=== PATIENT | female | born 1960 | race Caucasian/White ===

== ENCOUNTER 2024-12-22 04:39 | Emergency (ER) | payer MEDICARE, BC, SELFPAY ==
[2024-12-22 05:11] VITALS: BP 119/73; PULSE 87; RESP 18; TEMP 36.4; O2SAT 100; BMI 21.5
--- NOTE | 2024-12-22 07:02 | ED_ITS ---
HPI - Eye Problem General: Chief complaint: Eye Problems Stated complaint: Left Eye Swollen Time Seen by Provider: 12/22/24 05:55 History of Present Illness: 64-year-old female presents emergency ro om with swelling of the left upper eyelid. She reports she has had these multiple times the swelling in the side is increasing extending across the upper eyelid and even a sensation of swelling in the left cheek. She has not had any fevers or chills no trauma to the eye. She reports having several of these over the last few months. She was seen recently in urgent care and given steroids and antihistamines has not had a response. Related Data Home Medications ?Medication ?Instructions ?Recorded ?Confirmed alprazolam 0.5 mg tablet 0.5 mg PO BID 11/30/2412/22 cholecalciferol (vitamin D3) 1,250 1,250 mcg PO Q7D 12/22/24 mcg (50,000 unit) capsule tirzepatide 15 mg/0.5 mL 15 mg SUBCUT Q30D 11/30/24 0 12/22/24 subcutaneous pen injector (Ilan) Previous Rx's ?Medication ?Instructions ?Recorded fexofenadine 60 mg tablet (Claudia 60 mg PO Q12H 30 da ys #60 tabs 12/01/24 Allergy) dopmrwbe-vzsdxnoaz-zjgdqoab 3.5 1 drp ophthalmic (eye) Q6H #5 mL 12/22/24 mg/mL-10,000 unit/mL-0.1% eye drops sulfamethoxazole 800 1 tab PO BID 7 days #14 tabs 12/22/24 mg-trimethoprim 160 mg tablet (Bactrim DS) Allergies Allergy/AdvReac Type Severity Reaction Status Date / Time ceftriaxone Allergy Severe Unresponsiv Verified 12/22/24 05:14 e ciprofloxacin Allergy Severe Unresponsiv Verified 12/22/24 05:14 e levofloxacin (From Levaquin) Allergy Severe Unresponsiv Verified 12/22/24 05:14 e penicillin G Allergy Severe Unresponsiv Verified 12/22/24 05:14 e codeine Allergy Unresponsiv Verified 12/22/24 05:14 e Opioid Allergy Severe ADR-Vomitin Uncoded 12/22/24 05:14 g PFSH ED PFSH: Medical History Multiple environmental allergies Sty, internal Social History Smoking and tobacco/nicotine status: never used tobacco/nicotine Physical Exam Const: COMMON NORMALS: no acute distress GENERAL APPEARANCE: cooperative and comfortable ORIENTATION/CONSCIOUSNESS: Yes awake, Yes oriented to person, Yes oriented to place and Yes oriented to time HENMT: COMMON NORMALS: normocephalic, atraumatic and hearing grossly normal bilaterally HEAD & SCALP: normocephalic and atraumatic Eye: OTHER: Reportedly in the medial aspect of the left upper eyelid with localized swelling mild erythema of the upper eyelid itself the upper limb appears to be coming to a point sclera and conjunctiva are normal there is mild excessive watering of the eye Extremity: COMMON NORMALS: normal to inspection, capillary refill normal, no clubbing, cyanosis or edema, no calf tenderness and no pedal edema Neuro: SENSORIUM/ORIENTATION: Yes oriented to person, Yes oriented to place and Yes oriented to time Skin: COMMON NORMALS: no rashes or lesions noted GENERAL SKIN EXAM: no rashes or lesions noted Course Vital Signs: Vital signs: Vital Signs Temperature 97.6 F 12/22/24 05:11 Pulse Rate 86 12/22/24 07:25 Respiratory Rate 18 12/22/24 05:11 Blood Pressure 141/98 12/22/24 07:25 Pulse Oximetry 99 12/22/24 07:25 Oxygen Delivery Me thod Room Air 12/22/24 05:11 MDM - Eye Problem Medical Decision Making Patient is reporting multiple episodes of these given the frequency will start her on Bactrim addition to localized swelling does extend a little bit beyond the eye itself. Also provide topical antibiotic ointment arrangements for her to be seen in the myology later this morning. She may benefit from incision and drainage of the heartily and No radiology studies performed this visit Discharge Plan Discharge Patient Disposition: Home Clinical Impression: Hordeolum Condition: Stable Prescriptions: New sulfamethoxazole-trimethoprim [Bactrim DS] 800-160 mg tablet 1 tab PO BID 7 Days Qty: 14 0RF neomycin-polymyxin B-dexameth 3.5mg/mL-10,000 unit/mL-0.1 % drops,suspension 1 drp ophthalmic (eye) Q6H Qty: 5 0RF No Action fexofenadine [Claudia Allergy] 60 mg tablet 60 mg PO Q12H 30 Days Qty: 60 1RF Mounjaro 15 mg/0.5 mL pen injector 15 mg SUBCUT Q30D cholecalciferol (vitamin D3) 1,250 mcg (50,000 unit) capsule 1,250 mcg PO Q7D alprazolam 0.5 mg tablet 0.5 mg PO BID Discharge Orders: Discharge ED (Routine); Ordered 12/22/24 Ordered By: Anshu Lindsey Referrals: Perfecto Cee [Physician] - Discharge Diet: Usual diet Discharge Activity: Resume usual activity Patient Instructions: Opioid Safety, Pain Management, Stye (Hordeolum) Activity Restrictions/Additional Instructions: Thank you for choosing [facility] for your healthcare needs today. It is very important that you follow up as instructed or that you return to the Emergency Department should you have concerns or if your condition changes or worsens in any way. You are seen in the emergency room for swelling of any left upper eyelid with swelling extending to the cheek. The typical treatment for these is warm compr esses to the eye if they are recurrent or such as this one and they seem to have swelling that is extending will recommend oral and topical antibiotic with a steroid. Will contact you later this morning to follow-up with an signal integrity engineer here in town who can evaluate for incision and drainage of hordeolum (stye). Print Language: Kyrgyz Coding Level of Care Code ED Roll Form Operator for Debbie Amato
[2024-12-22 07:25] VITALS: BP 141/98; PULSE 86; O2SAT 99
== END 2024-12-22 07:26 | disposition home or self-care (01) ==
PROVIDERS: Emergency Provider Family Medicine
DX: H00.014 Hordeolum externum left upper eyelid (principal)
CPT/HCPCS: 99283

== ENCOUNTER → 2025-04-05 14:52 | Outpatient (BNVA) | payer MEDICARE, BC, SELFPAY | PROVIDERS: PCP Family Medicine; Visit Provider Family Medicine | DX: R30.0 Dysuria (principal) | CPT/HCPCS: 81000 ==

== ENCOUNTER → 2025-05-03 09:58 | Outpatient (BNVA) | payer MEDICARE, BC, SELFPAY | PROVIDERS: PCP Family Medicine; Visit Provider Family Medicine | DX: Z13.6 Encounter for screening for cardiovascular disorders (principal); Z11.59 Encounter for screening for other viral diseases; R73.03 Prediabetes; Z11.4 Encounter for screening for human immunodeficiency virus [HIV] | CPT/HCPCS: 80053; 80061; 83036; 85025; 86803; 87389 ==

== ENCOUNTER → 2025-05-06 10:21 | Outpatient (BNVA) | payer MEDICARE, BC, SELFPAY | PROVIDERS: PCP Family Medicine; Visit Provider Nurse Practitioner Family | DX: M79.18 Myalgia, other site (principal); M54.2 Cervicalgia; G89.29 Other chronic pain | CPT/HCPCS: 20553; 99214; J1010; J3490 ==

== ENCOUNTER 2025-05-07 06:42 | Observation (INO) | payer MEDICARE, BC, SELFPAY ==
--- OUTSIDE RECORDS SUMMARY | 2024-01-04 16:30 | XMS_ITS ---
Author Organization [facility] Address [address] [facility] [facility] [address] [address] Care Team Providers Care Paper Maker Name Role Phone Brian Ford Unavailable [phone] Flaco Mclaughlin MD Unavailable Unavailable Migration, Provider Unavailable Unavailable Allergies Allergen (clinical drug ingredient) Drug/Non Drug Allergy documented on EMR Reaction Allergy Type Onset Date Status codeine Codeine Unknown Drug Allergy Active Penicillin Unknown Drug Allergy Active REASON FOR VISIT [facility] To [facility] Conversion Encounter Medications Medication SIG (Take, Route, Frequency, Duration) Notes Start Date End Date Status Cyanocobalamin 1000 MCG/ML ; Duration: 84 Active Clindamycin HCl 900 MG/50 ML-NACL 0.9% DIRECTED INTRAVENOUSLY EVERY 8 HOURS *Please review and pick correct strength-formulat ion from Sistemican options. If intended option is not shown, discontinue and re-order from Quick Search* 07/05/2022 Active Ozempic (1 MG/DOSE) 4 MG/3 ML ; Duration: 84 *Please review and pick correct strength-formulat ion from impokspan options. If intended option is not shown, discontinue and re-order from Quick Search* Active ALPRAZolam 0.5 MG ; Duration: 30 Active ALBUTEROL (EQV-PROVENTIL HFA) 90 MCG/INH ; Duration: 30 *Please review for potential replacement for e-prescription and drug interaction check* Active Encounters Encounter Location Date Provider Diagnosis [facility] [address] [place] [address] 01/04/2024 Provider Migration Osteomyelitis, jaw acute M27.2 Assessments Encounter Date Diagnosis (ICD Code) Assessment Notes Treatment Notes Treatment Clinical Notes Section Notes 01/04/2024 Osteomyelitis, jaw acute (ICD-10 - M27.2) Plan Of Treatment Medication Medication Name Sig Start Date Stop Date Notes Clindamycin HCl 900 MG/50 ML-NACL 0.9% DIRECTED INTRAVENOUSLY EVERY 8 HOURS 07/05/2022 *Please review and pick correct strength-formulation from Medispan options. If intended option is not shown, discontinue and re-order from Quick Search* Progress Notes * Kimberly TRAN SDOB: (64 yo F)Acc No.[id number]:01/04/2024 Patient: Kimberly CONNOR Provider: Emile vail Migration :1960 A ge:63 Y S ex:Female Date:01/04/2024 Address:[address] [place] [address], [place], [id number] Subjective: * Chief Complaints: * 1 . Multum To [facility] Conversion Encounter. * Medical History: * Medications: T aking Cyanocobalamin 1000 MCG/ML Solution , Taking ALPRAZolam 0.5 MG Tablet , Taking ALBUTEROL (EQV-PROVENTIL HFA) 90 MCG/INH AEROSOL , Notes to Pharmacist: *Please review for potential replacement for e-prescription and drug interaction check*, Taking Ozempic (1 MG/DOSE) 4 MG/3 ML SOLUTION , Notes to Pharmacist: *Please review and pick correct strength-formulation from Medispan options. If intended option is not shown, discontinue and re-order from Quick Search* * Allergies: C odeine, Penicillin. Objective: * Vitals: Assessment: * Assessment: 1. O steomyelitis, jaw acute - M27.2 (Primary) Plan: * Treatment: * * Electronic signature of Prov ider Migration on 05/07/2025 at 07:54 AM EDT Sign off status: Pending * Provider: Emile vail Migration Date: 0 01/04/2024 Generated for Brian hurt/Medardo/eTransmitting on: 0 05/07/2025 07:54 AM EDT
--- OUTSIDE RECORDS SUMMARY | 2024-01-04 16:30 | XMS_ITS ---
Author Organization [facility] [address] [facility] [facility] [address] [address] Care Team Providers Care Credit Review Manager Name Role Phone Brian Ford Unavailable [phone] Flaco Mclaughlin MD Unavailable Unavailable Migration, Provider Unavailable Unavailable Allergies Allergen (clinical drug ingredient) Drug/Non Drug Allergy documented on EMR Reaction Allergy Type Onset Date Status codeine Codeine Unknown Drug Allergy Active Penicillin Unknown Drug Allergy Active REASON FOR VISIT [facility] Conversion Encounter Medications Medication SIG (Take, Route, Frequency, Duration) Notes Start Date End Date Status Cyanocobalamin 1000 MCG/ML ; Duration: 84 Active Clindamycin HCl 900 MG/50 ML-NACL 0.9% DIRECTED INTRAVENOUSLY EVERY 8 HOURS *Please review and pick correct strength-formulat ion from WeOrder LTDan options. If intended option is not shown, discontinue and re-order from Quick Search* 07/05/2022 Active Ozempic (1 MG/DOSE) 4 MG/3 ML ; Duration: 84 *Please review and pick correct strength-formulat ion from CardioMindspan options. If intended option is not shown, discontinue and re-order from Quick Search* Active ALPRAZolam 0.5 MG ; Duration: 30 Active ALBUTEROL (EQV-PROVENTIL HFA) 90 MCG/INH ; Duration: 30 *Please review for potential replacement for e-prescription and drug interaction check* Active Encounters Encounter Location Date Provider Diagnosis [facility] [address] [place] [address] 01/04/2024 Provider Migration Osteomyelitis, jaw acute M27.2 [...] * Kimberly TRAN SDOB: (64 yo F)Acc No.[id number]:01/04/2024 Patient: Kimberly CONNOR Provider: Emile vail Migration :1960 A ge:63 Y S ex:Female Date:01/04/2024 Address:[address] [place] [address], [place], [id number] Subjective: * Chief Complaints: * 1 . [facility] Conversion Encounter. * Medical History: * Medications: [...] Electronic signature of Prov ider Migration on 05/08/2025 at 02:54 PM EDT Sign off status: Pending * Provider: Emile vail Migration Date: 0 01/04/2024 Generated for Brian hurt/Medardo/eTransmitting on: 0 05/08/2025 02:54 PM EDT
[2025-05-07] VITALS (99 sets, daily range): BP systolic 121–156; BP diastolic 65–104; PULSE 66–96; RESP 12–32; TEMP 36.6–37; O2SAT 83–100; BMI 21.1
--- NOTE | 2025-05-07 06:52 | ECG_ITS ---
[facility] Pat Name: Kimberly Zaidi Department: Room: Gender: Female Manager Business Banking: : 1960 Requested By: Anshu Hernandez Order Number: [id number] Karolina MD: Paz Wray M.D. Measurements Intervals [place] Rate: 92 P: 83 OK: 141 QRS: 90 QRSD: 90 T: 86 QT: 360 QTc: 445 Interpretive Statements SINUS RHYTHM POSSIBLE RIGHT ATRIAL ENLARGEMENT [0.25mV P-WAVE] POSSIBLE LEFT ATRIAL ENLARGEMENT [-0.1mV P-WAVE IN V1/V2] LOW QRS VOLTAGE IN PRECORDIAL LEADS [QRS DEFLECTION < 1.0 mV IN CHEST LEADS] MODERATE ST DEPRESSION [0.05+ mV ST DEPRESSION] No previous ECG available for comparison Electronically Signed On 05-07-2025 15:09:19 CDT by Paz Wray M.D. [email or web address]
--- NOTE | 2025-05-07 06:53 | XR_ITS ---
WS: [id number] Exam: XR chest 1V portable [id number] Date/Time of Exam: 05/07/2025 7:23 AM Reason For Exam: dyspnea/cough There is 25% pneumothorax of the upper lobe of the RIGHT lung. No midline shift or tension noted. The LEFT lung is clear. Normal cardiomediastinal silhouette. Bony structures are intact. No pleural effusion. XR/XR chest 1V portable [id number] IMPRESSION: 1. 25% pneumothorax of the upper lobe of the RIGHT lung. These results were discussed by phone with Dr. Cervantes[facility] at 8:14 a.m. 05/07/2025.
--- OUTSIDE RECORDS SUMMARY | 2025-05-07 06:54 | XMS_ITS | Patient Health Record ---
Author Organization [facility] Address [address] [address] Care Team Providers Care Business Improvement Manager Name Role Phone Brian Ford Unavailable [phone] Arnoldo JACKSON, Flaco Unavailable Unavailable Allergies Allergen (clinical drug ingredient) Drug/Non Drug Allergy documented on EMR Reaction Allergy Type Onset Date Status codeine Codeine Unknown Drug Allergy Active Penicillin Unknown Drug Allergy Active Reason For Referral No Information Medications Medication SIG (Take, Route, Frequency, Duration) Notes Start Date End Date Status Cyanocobalamin 1000 MCG/ML ; Duration: 84 Active Clindamycin HCl 900 MG/50 ML-NACL 0.9% DIRECTED INTRAVENOUSLY EVERY 8 HOURS *Please review and pick correct strength-formulat ion from Boomi options. If intended option is not shown, discontinue and re-order from Quick Search* 07/05/2022 Active Ozempic (1 MG/DOSE) 4 MG/3 ML ; Duration: 84 *Please review and pick correct strength-formulat ion from Fluklean options. If intended option is not shown, discontinue and re-order from Quick Search* Active ALPRAZolam 0.5 MG ; Duration: 30 Active ALBUTEROL (EQV-PROVENTIL HFA) 90 MCG/INH ; Duration: 30 *Please review for potential replacement for e-prescription and drug interaction check* Active Social History Tobacco Use: Social History Observation Description Date Details (start date - stop date) Unknown if ever smoked NA - NA Alcohol: Question Answer Notes Interpretation Negative Smoking: Question Answer Notes Are you a: unknown if ever smoked Problems Problem Type SNOMED Code ICD Code Onset Dates Problem Status W/U Status Risk Notes Problem Type 2 diabetes mellitus (39949405) Type 2 diabetes mellitus (E11.9) 07/20/2021 Active confirmed Problem SVT (supraventricu lar tachycardia) (I47.1) 06/05/2021 Active confirmed Plan Of Treatment No Information Insurance Providers Payer Name Payer Address Payer Phone Subscriber Number Group Number Insured Name Patient Relationship to Insured Coverage Start Date Coverage End Date MEDICARE [employer] [address] [place] [address] [id number] Kimberly Zaidi Self - patient is the insured [place] [address] [place] [address] [id number] Kimberly Zaidi Self - patient is the insured Medical (General) History Medical History History ICD Code colorectal cancer rectal cancer osteomyelitis herpes SVT DM Surgical History Surgery Date(Month/Year) colectomy ileostomy jaw dental surgery Debridement reconstructive surgery
--- NOTE | 2025-05-07 06:56 | ED_ITS ---
HPI - Chest Pain 2 General: Chief Complaint: Chest Pain Stated Complaint: pain left side rib area, trouble breathing Time Seen by Provider: 05/07/25 06:48 History of Present Illness: 64-year-old female presents emergency ro om complaining of right-sided chest pain. Describes the pain as a squeezing sensation. Patient received trigger point injections in her upper back yesterday at the pain clinic. These were in the region of the rhomboid, scalene and levator scapula. Patient seen there for chronic neck and back pain. She did take some diphenhydramine last night and states that helped. Worse when she takes a deep breath. Associated symptoms: Deny abdominal pain, dyspnea or fever(s) Related Data Home Medications ?Medication ?Instructions ?Recorded ?Confirmed tirzepatide 15 mg/0.5 mL 15 mg SUBCUT Q30D 11/30/24 0 05/07/25 subcutaneous pen injector (Ilan) Brava Skin Barrier Wipe for Ostomy 01/15/25 05/07/25 appliance placement CeraPlus Lock'n Roll 1 piece 01/15/25 05/07/25 Drainable Ostomy Pouch ergocalciferol (vitamin D2) 1,250 1,250 mcg PO .weekly 01/15/25 05/07/25 mcg (50,000 unit) capsule mecobalamin (vitamin B12) 10,000 10,000 mcg IM .monthl y 05/06/25 05/07/25 mcg solution for injection aspirin 325 mg tablet (Malcolm 650 mg PO Q6H PRN Fever O r Pain 05/07/25 05/07/25 Aspirin) diphenhydramine HCl 25 mg tablet 25 mg PO TID PRN Phillip rgic Reaction 05/07/25 05/07/25 (Benadryl Allergy) valacyclovir 1 gram tablet 1,000 mg PO BID PRN breakou t 05/07/25 05/07/25 Previous Rx's ?Medication ?Instructions ?Recorded albuterol sulfate 90 mcg/actuation 2 puff inhalation Q 6H PRN 01/15/25 aerosol inhaler (Ventolin HFA) shortness of breath or wheezing #8.5 grams alprazolam 0.5 mg tablet 0.5 mg PO BID PRN anxiety #6 0 tabs 03/23/25 fexofenadine 60 mg tablet (Claudia 60 mg PO Q12H 30 da ys #60 tabs 03/23/25 Allergy) [id number]-[id number]-nivnxbun 3.5 1 drp ophthalmic (eye) Q6H #5 mL 03/23/25 mg/mL-10,000 unit/mL-0.1% eye drops nitroglycerin 0.4 mg sublingual 0.4 mg sublingual Q5M PRN chest 04/22/25 tablet pain #20 tabs Allergies Allergy/AdvReac Type Severity Reaction Status Date / Time ceftriaxone Allergy Severe Unresponsiv Verified 05/07/25 06:58 e ciprofloxacin Allergy Severe Unresponsiv Verified 05/07/25 06:58 e levofloxacin (From Levaquin) Allergy Severe Unresponsiv Verified 05/07/25 06:58 e penicillin G Allergy Severe Unresponsiv Verified 05/07/25 06:58 e codeine Allergy Unresponsiv Verified 05/07/25 06:58 e Opioid Allergy Severe ADR-Vomitin Uncoded 05/07/25 06:58 g Review of Systems 2 Const: Denies: fever(s) or chills Card: Reports: chest pain Resp: Denies: dyspnea GI: Denies: abdominal pain : Denies: dysuria, urinary frequency or urinary urgency Musc: Denies: neck pain or back pain Skin/Breast: Denies: rash PFSH ED 2 PFSH: Medical History History of myocardial infarction History of endometriosis SVT (supraventricular tachycardia) History of trigeminal neuralgia DDD (degenerative disc disease), cervical History of major depression History of pernicious anemia History of hyperlipidemia History of hypothyroidism History of renal calculi History of colorectal cancer IIIB - diagnosed 05/2015. She no longer follows with oncology. Underwent radiation and chemo. Multiple environmental allergies Surgical History History of hysterectomy History of abdominal surgery History of knee surgery History of repair of right rotator cuff History of bilateral breast reduction surgery History of total colectomy History of ovarian cystectomy History of unilateral salpingectomy History of appendectomy History of ileostomy Family History Grandfather Diabetes Grandmother Alzheimer's dementia Mother Alzheimer's dementia Heart disease Social History Smoking and tobacco/nicotine status: never used tobacco/nicotine Alcohol intake: current Alcohol intake frequency: few times a month Substance/Drug Use: never Physical Exam 2 Const: GENERAL APPEARANCE: cooperative ORIENTATION/CONSCIOUSNESS: Yes awake, Yes oriented to person, Yes oriented to place and Yes oriented to time HENMT: COMMON NORMALS: normocephalic, atraumatic and hearing grossly normal bilaterally HEAD & SCALP: normocephalic and atraumatic Resp: COMMON NORMALS: normal respiratory effort, No retractions and No use of accessory muscles OTHER: Slightly diminished sounds in the right upper lung otherwise clear Cardio: COMMON NORMALS: regular rate, regular rhythm and No murmurs present (Cardio) RATE: regular rate RHYTHM: regular rhythm GI: COMMON NORMALS: Soft to palpation and No hepatosplenomegaly present A USCULTATION: Yes normoactive bowel sounds PALPATION: Yes Soft to palpation, No Tenderness to palpation present (GI), No Guarding due to palpation present (GI) and Yes No hepatosplenomegaly present Extremity: COMMON NORMALS: normal to inspection, capillary refill normal, no clubbing, cyanosis or edema, no calf tenderness and no pedal edema Neuro: SENSORIUM/ORIENTATION: Yes oriented to person, Yes oriented to place and Yes oriented to time Skin: COMMON NORMALS: no rashes or lesions noted GENERAL SKIN EXAM: no rashes or lesions noted Procedures Chest Tube Chest Tube 1: Chest Tube Location: right Size of Tube (cm): 13 Chest Tube Prep: Yes betadine prep and sterile drapes applied Local Anesthetic: lidocaine 1% Amount of anesthesia used (mL): 5 Incision Made With: #11 blade Post Procedure: sterile dressing applied and other (Adhesive) Tube Drainage: none Post Procedure CXR?: Yes Patient Tolerated Procedure: Yes Progress: Thora vent applied good position good resolution of pneumothorax. Thora vent attached to Pleur-evac. Minimal air leak. Procedural Sedation Indication: other (Placement of Thora vent) ASA Class: I Preparation: horse racetrack manager applied, pulse oximeter, supplemental O2 applied, suction/airway equipment at bedside and IV secured Fentanyl: IV Fentanyl dose (mcg): 75 Midazolam: IV Midazolam dose (mg): 5 Complications: none Course 2 Vital Signs: Vital signs: Vital Signs Temperature 98.6 F 05/07/25 12:00 Pulse Rate 80 05/07/25 16:00 Respiratory Rate 16 05/07/25 16:25 Blood Pressure 131/77 05/07/25 16:00 Pulse Oximetry 96 05/07/25 16:25 Oxygen Delivery Me thod Room Air 05/07/25 11:30 MDM - Chest Pain Medical Decision Making Patient presents with severe right-sided chest pain chest x-ray showed a 25% pneumothorax. Thora vent placed. Was able to manually displace approximately 400 mL of air then hooked to Pleur-evac. Will admit to hospitalist consult pulmonology have discussed with both orders written Medical Records I reviewed the patient's medical records. Lab Data I reviewed the patient's lab results. 05/07/25 07:17 05/07/25 07:17 Radiology Impressions Chest X-Ray 05/07/25 09:36 IMPRESSION: 1. Small bore thoracostomy tube positioned in the superior RIGHT pleural cavity. Previously noted RIGHT upper lobe pneumothorax appears to have resolved. Chest CT 05/07/25 11:27 IMPRESSION: 1. 1. Resolved right pneumothorax with small bore chest tube in satisfactory position in the upper RIGHT pleural cavity. Small right-sided pleural effusion. 2. Other minor findings as above. Laboratory Results WBC 14.14 10^3/uL (3.29-11.43) H 05/07/25 07:17 RBC 4.15 10^6/uL (3.85-5.65) 05/07/25 07:17 Hgb 12.60 g/dL (11.27-16.99) 05/07/25 07:17 Hct 36.4 % (36-47) 05/07/25 07:17 MCV 87.7 fl (85-98) 05/07/25 07:17 MCH 30.4 pg (27-33) 05/07/25 07:17 MCHC 34.6 g/dL (30-55) 05/07/25 07:17 RDW 12.8 % (12.1-15.1) 05/07/25 07:17 Plt Count 295 10^3/cmm (157-399) 05/07/25 07:17 MPV 9.9 fL (7.4-10.4) 05/07/25 07:17 Neut % (Auto) 81.8 % 05/07/25 07:17 Lymph % (Auto) 10.6 % 05/07/25 07:17 [place] % (Auto) 6.9 % 05/07/25 07:17 Eos % (Auto) 0.1 % 05/07/25 07:17 Baso % (Auto) 0.2 % 05/07/25 07:17 Neut # (Auto) 11.56 10^3/uL (1.8-7.7) H 05/07/25 07:17 Lymph # (Auto) 1.5 10^3/uL (0.8-4.8) 05/07/25 07:17 [place] # (Auto) 1.0 10^3/uL (0.2-0.9) H 05/07/25 07:17 Eos # (Auto) 0.0 10^3/uL (0.0-0.8) 05/07/25 07:17 Baso # (Auto) 0.0 10^3/uL (0.0-0.1) 05/07/25 07:17 Nucleated RBC % (auto) 0 % 05/07/25 07:17 Nucleated RBCs # 0.0 /100WBC 05/07/25 07:17 Sodium 141 mmol/L (136-145) 05/07/25 07:17 Potassium 3.8 mmol/L (3.5-5.1) 05/07/25 07:17 Chloride 105 mmol/L (98-107) 05/07/25 07:17 Carbon Dioxide 22 mmol/L (22-29) 05/07/25 07:17 Anion Gap 17.8 (5-19) 05/07/25 07:17 BUN 21 mg/dL (8-23) 05/07/25 07:17 Creatinine 0.7 mg/dL (0.5-0.9) 05/07/25 07:17 GFR Calculation 84.0 mL/min (90-130) L 05/07/25 07:17 Glucose 108 mg/dL (65-115) 05/07/25 07:17 Calculated Osmolality 296 mOsm/kg (285-295) H 05/07/25 07:17 Calcium 10.0 mg/dL (8.5-10.5) 05/07/25 07:17 Total Bilirubin 1.0 mg/dL (0.15-1.2) 05/07/25 07:17 AST 24 U/L (0-32) 05/07/25 07:17 ALT 16 U/L (0-33) 05/07/25 07:17 Alkaline Phosphatase 91 U/L (35-105) 05/07/25 07:17 Total Protein 7.3 g/dL (6.6-8.7) 05/07/25 07:17 Albumin 4.5 g/dL (3.5-5.2) 05/07/25 07:17 Globulin 2.8 g/dL (1.3-4.6) 05/07/25 07:17 All radiology interpretation(s) finalized by discharge Discharge Plan Discharge Patient Disposition: Admitted As Inpatient Admit Provider: Agustín Duran Clinical Impression: Pneumothorax Condition: Stable Coding Level of Care Code ED 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
[2025-05-07 07:28] LABS: Hematocrit 36.4 % (36-47); Hemoglobin 12.60 g/dL (11.27-16.99); Mean Corpuscular HGB Conc 34.6 g/dL (30-55); Mean Corpuscular Hemoglobin 30.4 pg (27-33); Mean Corpuscular Volume 87.7 fl (85-98); Nucleated Red Blood Cells % 0 %; Platelet Count 295 10^3/cmm (157-399); Red Blood Count 4.15 10^6/uL (3.85-5.65); White Blood Count 14.14 10^3/uL (3.29-11.43)
[2025-05-07 07:45] LABS: Alanine Aminotransferase 16 U/L (0-33); Albumin Level 4.5 g/dL (3.5-5.2); Alkaline Phosphatase 91 U/L (35-105); Anion Gap 17.8 (5-19); Aspartate Amino Transferase 24 U/L (0-32); Blood Urea Nitrogen 21 mg/dL (8-23); Calcium 10.0 mg/dL (8.5-10.5); Carbon Dioxide 22 mmol/L (22-29); Chloride 105 mmol/L (98-107); Creatinine Clr Calc Pharmacy 72.6768; Globulin 2.8 g/dL (1.3-4.6); Glucose 108 mg/dL (65-115); Osmolality Calculated 296 mOsm/kg (285-295); Potassium 3.8 mmol/L (3.5-5.1); Sodium 141 mmol/L (136-145); Total Protein 7.3 g/dL (6.6-8.7)
[2025-05-07] MEDS: midazolam 1 mg/mL INJ 2 mL 3 MG IVP (09:20)
[2025-05-07] MEDS: fentaNYL 50 mcg/mL INJ 2mL 75 MCG IVP (09:21)
--- NOTE | 2025-05-07 09:36 | XR_ITS ---
WS: [id number] Exam: XR chest 1V portable [id number] Date/Time of Exam: 05/07/2025 9:36 AM Reason For Exam: post tube placement Comparison with the last exam performed on the same day at 7:51 a.m. Small bore thoracostomy tube has been placed in the superior RIGHT pleural cavity. Previously noted pneumothorax of the RIGHT upper lobe appears to have resolved. LEFT lung remains clear and fully inflated. Normal cardiomediastinal silhouette. XR/XR chest 1V portable [id number] IMPRESSION: 1. Small bore thoracostomy tube positioned in the superior RIGHT pleural cavity . Previously noted RIGHT upper lobe pneumothorax appears to have resolved.
--- NOTE | 2025-05-07 09:36 | PC.NURSE ---
Addendum entered by Alejandra Fuentes RN 05/07/25 09:50: total of 1mg Versed and 25mcg Fentanyl wasted, see pyxis/MAR Original Note: Conscious Sedation/Thora-Vent insertion: x2 suction/adult-ambu bag/oxygen set up/intubation box available at bedside prior to procedure hemodynamic and cardiac monitoring set up q5 prior to procedure informed consent signed and in chart prior to procedure this nurse, ED physician, respiratory therapist available at bedside during procedure TIME OUT: 914 START TIME: 919 STOP TIME: 929 @15: 2L NC applied to pt @20: 4mg Versed administered @0921: 50mcg Fentanyl administered @0923: lidocaine administered via Dr. Lindsey @0923: 1mg Versed administered @0924: 25mcg Fentanyl administered @926: insertion of Thora-Vent @0927-@0930: Dr. Lindsey manually removed air via one-way valve; approx 600mL @0931: chest x-ray confirmation, viewed by Dr. Lindsey @0932: Thora-Vent connected to Pleur-Evac, connected to continuous suction @25mmHg
--- NOTE | 2025-05-07 09:58 | PC.NURSE ---
Conscious Sedation/Thora-Vent insertion: x2 suction/adult-ambu bag/oxygen set up/intubation box available at bedside prior to procedure hemodynamic and cardiac monitoring set up q5 prior to procedure informed consent signed and in chart prior to procedure this nurse, ED physician, respiratory therapist available at bedside during procedure TIME OUT: 914 START TIME: 919 STOP TIME: 929 @15: 2L NC applied to pt @919: 4mg Versed administered @21: 50mcg Fentanyl administered @922: lidocaine administered via Dr. Lindsey @922: 1mg Versed administered @24: 25mcg Fentanyl administered @925: insertion of Thora-Vent @926-@30: Dr. Lindsey manually removed air via one-way valve; approx 600mL @31: chest x-ray confirmation, viewed by Dr. Lindsey @32: Thora-Vent connected to Pleur-Evac, connected to continuous suction @25mmHg total of 1mg Versed and 25mcg Fentanyl wasted, see rik/HANNA (wasted with Neda Baker RN)
--- NOTE | 2025-05-07 10:21 | PC.NURSE ---
2L NC removed @1000; o2 sat 100%
--- NOTE | 2025-05-07 11:27 | CT_ITS ---
WS: [id number] Exam: CT chest con [id number] Date/Time of Exam: 05/07/2025 11:27 AM Reason For Exam: pneumothorax DLP: 329.[address] scans at [facility] use at least one of these dose optimization techniques: automated exposure control; mA and/or kV adjustment per patient size (includes targeted exams where dose is matched to clinical indication); or iterative reconstruction. The RIGHT lung is fully expanded. A small bore chest tube enters anteriorly and ends in the superior aspect of the RIGHT pleural cavity. Tiny amount of air in the anterior RIGHT chest wall secondary to instrumentation. Small posterior right-sided pleural effusion is noted. The LEFT lung is clear and fully inflated. Pectus excavatum. The airway is patent. No lymphadenopathy in the chest. The thoracic aorta is normal in caliber. No pericardial effusion. Several coronary artery calcifications noted. CT sections of the upper abdomen are unremarkable. No destructive bone lesions. Mild degenerative changes and spondylosis of the T-spine. CT/CT chest con [id number] IMPRESSION: 1. 1. Resolved right pneumothorax with small bore chest tube in satisfactory po sition in the upper RIGHT pleural cavity. Small right-sided pleural effusion. 2. Other minor findings as above.
--- NOTE | 2025-05-07 13:34 | P.HP_ITS ---
Providers/Chief Complaint 2 Admitting Physician: Agustín Duran Primary Care Provider: Tricia Rivera DO Chief Complaint: pain left side rib area, trouble breathing History of Present Illness Kimberly Zaidi is a 64 year old patient with a history of myocardial infarction, major depressive disorder, hypothyroidism, pernicious anemia, nephrolithiasis, and stage 3B colorectal cancer (status-post colectomy with permanent ileostomy, in remission since 2015) presenting after developing acute right-sided rib pain, chest tightness, and difficulty taking deep breaths following trigger-point steroid injections to the shoulder/upper back yesterday. Home measures included aspirin (no relief), diphenhydramine (partial relief), and alprazolam. Overnight the pain intensified, prompting ED evaluation where a right pneumothorax (~25 %) was found on chest X-ray. A small-bore thoravent was placed with suction; approximately 400 mL of air was evacuated. CT chest performed about an hour ago shows resolution of the pneumothorax with re- expanded lung and a small pleural effusion/subcutaneous air. The suction has been turned off per pulmonology, and the patient is being monitored in ICU. Pain improved after an intramuscular ketorolac injection. The patient also reports chronic severe headaches for weeks and chronic neck/back pain for which she was receiving the trigger-point injections. No fever, chills, upper-respiratory or gastrointestinal symptoms. She had been NPO for a scheduled nuclear medicine cardiac stress test (now canceled and to be rescheduled). Review of Systems 2 Const: Denies: fever(s), chills, body aches or malaise ENMT: Denies: throat pain Card: Reports: chest pain; Denies: edema, pre-syncope or dyspnea on exertion Resp: Reports: dyspnea; Denies: productive cough, change in phlegm color or hemoptysis GI: Denies: abdominal pain, nausea, vomiting, diarrhea, constipation, hematochezia or melena : Denies: flank pain, urinary frequency or hematuria Musc: Denies: back pain, joint swelling or joint redness Skin/Breast: Denies: rash or new lesions Neuro: Denies: headache(s) or confusion Medications/Allergies Home Medications ?Medication ?Instructions ?Recorded ?Confirmed ?Last Taken ?Type tirzepatide 15 mg/0.5 mL 15 mg SUBCUT Q30D 11/30/24 0 05/07/25 05/04/25 History subcutaneous pen injector (Ilan) Brava Skin Barrier Wipe for Ostomy 01/15/25 05/07/25 Unknown History appliance placement CeraPlus Lock'n Roll 1 piece 01/15/25 05/07/25 Unknow n History Drainable Ostomy Pouch albuterol sulfate 90 mcg/actuation 2 puff inhalation Q 6H PRN 01/15/25 05/07/25 Unknown Rx aerosol inhaler (Ventolin HFA) shortness of breath or wheezing #8.5 grams ergocalciferol (vitamin D2) 1,250 1,250 mcg PO .weekly 01/15/25 05/07/25 05/04/25 History mcg (50,000 unit) capsule alprazolam 0.5 mg tablet 0.5 mg PO BID PRN anxiety #6 0 tabs 03/23/25 05/07/25 05/06/25 19:00 Rx fexofenadine 60 mg tablet (Claudia 60 mg PO Q12H 30 da ys #60 tabs 03/23/25 05/07/25 Unknown Rx Allergy) txowuctk-azfsxnuca-jykjocdo 3.5 1 drp ophthalmic (eye) Q6H #5 mL 03/23/25 05/07/25 Unknown Rx mg/mL-10,000 unit/mL-0.1% eye drops nitroglycerin 0.4 mg sublingual 0.4 mg sublingual Q5M PRN chest 04/22/25 05/07/25 Unknown Rx tablet pain #20 tabs mecobalamin (vitamin B12) 10,000 10,000 mcg IM .monthl y 05/06/25 05/07/25 04/16/25 History mcg solution for injection aspirin 325 mg tablet (Malcolm 650 mg PO Q6H PRN Fever O r Pain 05/07/25 05/07/25 05/06/25 History Aspirin) diphenhydramine HCl 25 mg tablet 25 mg PO TID PRN Phillip rgic Reaction 05/07/25 05/07/25 05/07/25 07:00 History (Benadryl Allergy) valacyclovir 1 gram tablet 1,000 mg PO BID PRN breakou t 05/07/25 05/07/25 Unknown History Allergies Allergy/AdvReac Type Severity Reaction Status Date / Time ceftriaxone Allergy Severe Unresponsiv Verified 05/07/25 06:58 e ciprofloxacin Allergy Severe Unresponsiv Verified 05/07/25 06:58 e levofloxacin (From Levaquin) Allergy Severe Unresponsiv Verified 05/07/25 06:58 e penicillin G Allergy Severe Unresponsiv Verified 05/07/25 06:58 e codeine Allergy Unresponsiv Verified 05/07/25 06:58 e Opioid Allergy Severe ADR-Vomitin Uncoded 05/07/25 06:58 g PFSH Acute 2 PFSH: Medical History History of myocardial infarction History of endometriosis SVT (supraventricular tachycardia) History of trigeminal neuralgia DDD (degenerative disc disease), cervical History of major depression History of pernicious anemia History of hyperlipidemia History of hypothyroidism History of renal calculi History of colorectal cancer IIIB - diagnosed 05/2015. She no longer follows with oncology. Underwent radiation and chemo. Multiple environmental allergies Surgical History History of hysterectomy History of abdominal surgery History of knee surgery History of repair of right rotator cuff History of bilateral breast reduction surgery History of total colectomy History of ovarian cystectomy History of unilateral salpingectomy History of appendectomy History of ileostomy Family History Grandfather Diabetes Grandmother Alzheimer's dementia Mother Alzheimer's dementia Heart disease Social History Smoking and tobacco/nicotine status: never used tobacco/nicotine Alcohol intake: current Alcohol intake frequency: few times a month Substance/Drug Use: never Vitals/I&O/Wt Last Vital Signs Temp 97.9 F 05/07/25 06:48 Pulse 75 05/07/25 11:23 Resp 16 05/07/25 10:55 BP 136/85 05/07/25 10:55 Pulse Ox 99 05/07/25 10:55 O2 Del Method Room Air 05/07/25 11:30 05/06/25 05/07/25 05/07/25 22:59 06:59 14:59 Intake Total 0 / 0 Balance 0 / 0 Weight last 48 hrs Weight 66 kg Weight 64.864 kg Physical Exam 2 Const: COMMON NORMALS: patient oriented x3 and alert GENERAL APPEARANCE: c ooperative ORIENTATION/CONSCIOUSNESS: Yes awake HENMT: COMMON NORMALS: oropharynx normal Neck/C-Spine: COMMON NORMALS: no JVD Chest: OTHER: Thoravent R chest Resp: COMMON NORMALS: normal respiratory effort and clear to auscultation bilaterally AUSCULTATION: clear to auscultation bilaterally Cardio: COMMON NORMALS: no JVD, regular rhythm, S1 normal heart sound present, S2 normal heart sound present and No murmurs present (Cardio) RHYTHM: regular rhythm HEART SOUNDS: S1 normal heart sound present and S2 normal heart sound present GI: COMMON NORMALS: Normal to inspection, nondistended, normoactive bowel sounds present, Soft to palpation and non-tender PALPATION: Yes Soft to palpation Extremity: COMMON NORMALS: no joint enlargement and no pedal edema Neuro: COMMON NORMALS: patient oriented x3 and moves all extremities S ENSORIUM/ORIENTATION: Yes alert Skin: COMMON NORMALS: no rashes or lesions noted GENERAL SKIN EXAM: no rashes or lesions noted Data 05/07/25 07:17 05/07/25 07:17 A&P Assessment and plan 1. Pneumothorax: Right pneumothorax status-post thoravent placement : CT shows resolved pneumothorax with lung re-expanded; small pleural effusion noted. Thoravent in place with suction now off per pulmonology; patient clinically stable. Was accompanied by pain, did respond to Toradol. Reviewed vitals, CBC, BMP, noted mild leukocytosis 14.14. Reviewed chest x-ray, EKG, ED provider note, discussed with ED provider. Reviewed chest CT, discussed with her and her , noted resolution of pneumothorax at this time, Thora vent in place, small air bubble in the chest wall, small right pleural effusion. Incidentally noted coronary calcifications. Sections been turned off, Thyrogen clamped to seal. No bleeding or displacement of Thora vent, no noted air leak. - Continue monitoring in ICU; patient to report any worsening dyspnea or chest pain. - Follow pulmonology guidance on timing of repeat imaging and chest tube removal. Plan: Right-sided chest/rib pain : Pain likely secondary to recent pneumothorax and chest tube placement; improved with ketorolac. - Ketorolac available PRN for breakthrough pain. IV morphine as needed for severe breakthrough. - Offer acetaminophen as adjunct analgesic. Chronic headaches : Patient reports severe headaches for weeks; no specific work-up documented during this admission. - Provide ketorolac and acetaminophen as needed for headache relief. - Reassess need for additional headache evaluation if pain persists. Coronary artery disease (history of DE, coronary calcifications noted) : Incidentally noted coronary artery calcifications on CT; cardiac stress test was scheduled but canceled due to current admission. - Reschedule nuclear medicine stress test after discharge (target next week, pending pulmonology clearance). Colorectal cancer surveillance : History of stage 3B colorectal cancer, in remission; patient reports no PET scan in past three years. - Recommend scheduling follow-up oncologic imaging (e.g., PET scan) per oncology guidelines. PDMP PDMP Reviewed: Not Reviewed Attestations 2 Medical Necessity Statement*: Place in observation for additional assessment management of right pneumothorax. Coding Level of Care Code Critical Care >/= 30 minutes Critical care time (in minutes): 35 The high probability of a clinically significant, sudden or life threatening deterioration, as referenced in this documentation, required my full and direct attention, intervention and personal management. The critical care time shown is in addition to time spent performing any reported separately billable procedures and includes the following: [x] Data and vital sign review and interpretation [x ] Patient assessment, examination and intervention [x] Medication orders and management [x] Patient/Family updates as able [x] Care Coordination and Documentation. Diagnoses Pneumothorax J93.9
--- NOTE | 2025-05-07 14:26 | P.CONIM_ITS ---
Providers/Reason For Consult 2 Consulting Physician/Specialty*: Emergency department` Reason for Consult*: Moderate right-sided pneumothorax Attending Physician: Agustín Duran Primary Care Provider: Tricia Rivera DO History of Present Illness History of Present Illness Kimberly Zaidi is a 64-year-old female with a past medical history of coronary artery disease, major depressive disorder, hypothyroidism, pernicious anemia, nephrolithiasis, and stage 3B colorectal cancer (status post colectomy with permanent ileostomy, in remission since 2014) presented with acute right- sided flank and chest pain, along with shortness of breath. These symptoms developed shortly after receiving trigger-point steroid injections to the right shoulder and upper back the previous day. She reported immediate post-injection symptoms, including numbness in her neck and mouth. She went home and self-administered aspirin, Benadryl, and alprazolam, with minimal relief. Overnight and into the following morning, her right-sided chest pain and dyspnea worsened, prompting her to present to the emergency department. A chest X-ray revealed a moderate right-sided pneumothorax. She underwent placement of a small-bore Thora-Vent catheter, resulting in complete evacuation of the pneumothorax and significant improvement in both symptoms and radiographic findings. The patient reported substantial symptomatic relief following the intervention. She has no known history of lung disease or prior pneumothorax and denies any family history of pulmonary conditions. She quit smoking in 2007 after an estimated 5?10 pack-year history of intermittent tobacco use over approximately 20 years. At the time of interview, she denied any ongoing symptoms. Review of Systems 2 General: Reports: 10 or more systems reviewed and unremarkable except in HPI and below Card: Reports: chest pain Resp: Reports: dyspnea GI: Reports: other (Ileostomy bag) Medications/Allergies Home Medications ?Medication ?Instructions ?Recorded ?Confirmed ?Last Taken ?Type tirzepatide 15 mg/0.5 mL 15 mg SUBCUT Q30D 11/30/24 0 05/07/25 05/04/25 History subcutaneous pen injector (Mounjaro) Brava Skin Barrier Wipe for Ostomy 01/15/25 05/07/25 Unknown History appliance placement CeraPlus Lock'n Roll 1 piece 01/15/25 05/07/25 Unknow n History Drainable Ostomy Pouch albuterol sulfate 90 mcg/actuation 2 puff inhalation Q 6H PRN 01/15/25 05/07/25 Unknown Rx aerosol inhaler (Ventolin HFA) shortness of breath or wheezing #8.5 grams ergocalciferol (vitamin D2) 1,250 1,250 mcg PO .weekly 01/15/25 05/07/25 05/04/25 History mcg (50,000 unit) capsule alprazolam 0.5 mg tablet 0.5 mg PO BID PRN anxiety #6 0 tabs 03/23/25 05/07/25 05/06/25 19:00 Rx fexofenadine 60 mg tablet (Claudia 60 mg PO Q12H 30 da ys #60 tabs 03/23/25 05/07/25 Unknown Rx Allergy) inteoosy-gntkkkfjy-cwxkcupi 3.5 1 drp ophthalmic (eye) Q6H #5 mL 03/23/25 05/07/25 Unknown Rx mg/mL-10,000 unit/mL-0.1% eye drops nitroglycerin 0.4 mg sublingual 0.4 mg sublingual Q5M PRN chest 04/22/25 05/07/25 Unknown Rx tablet pain #20 tabs mecobalamin (vitamin B12) 10,000 10,000 mcg IM .monthl y 05/06/25 05/07/25 04/16/25 History mcg solution for injection aspirin 325 mg tablet (Malcolm 650 mg PO Q6H PRN Fever O r Pain 05/07/25 05/07/25 05/06/25 History Aspirin) diphenhydramine HCl 25 mg tablet 25 mg PO TID PRN Phillip rgic Reaction 05/07/25 05/07/25 05/07/25 07:00 History (Benadryl Allergy) valacyclovir 1 gram tablet 1,000 mg PO BID PRN breakou t 05/07/25 05/07/25 Unknown History Allergies Allergy/AdvReac Type Severity Reaction Status Date / Time ceftriaxone Allergy Severe Unresponsiv Verified 05/07/25 06:58 e ciprofloxacin Allergy Severe Unresponsiv Verified 05/07/25 06:58 e levofloxacin (From Levaquin) Allergy Severe Unresponsiv Verified 05/07/25 06:58 e penicillin G Allergy Severe Unresponsiv Verified 05/07/25 06:58 e codeine Allergy Unresponsiv Verified 05/07/25 06:58 e Opioid Allergy Severe ADR-Vomitin Uncoded 05/07/25 06:58 g Current Medications Generic Name Dose Route Start Last Admin Trade Name Ceferinoq PRN Reason Stop Dose Admin Ketorolac Tromethamine 15 mg 05/07/25 12:00 05/07/25 12:23 Ketorolac 30 Mg/Ml Inj IVP 05/12/25 11:59 15 mg Q6H MILAN Administration PFSH Acute 2 PFSH: Medical History (Updated 05/07/25 @ 14:44 by Sasha Hamilton MD) History of smoking Coronary artery disease History of myocardial infarction History of endometriosis SVT (supraventricular tachycardia) History of trigeminal neuralgia DDD (degenerative disc disease), cervical History of major depression History of pernicious anemia History of hyperlipidemia History of hypothyroidism History of renal calculi History of colorectal cancer IIIB - diagnosed 05/2015. She no longer follows with oncology. Underwent radiation and chemo. Multiple environmental allergies Surgical History History of hysterectomy History of abdominal surgery History of knee surgery History of repair of right rotator cuff History of bilateral breast reduction surgery History of total colectomy History of ovarian cystectomy History of unilateral salpingectomy History of appendectomy History of ileostomy Family History Grandfather Diabetes Grandmother Alzheimer's dementia Mother Alzheimer's dementia Heart disease Social History Smoking and tobacco/nicotine status: never used tobacco/nicotine Alcohol intake: current Alcohol intake frequency: few times a month Substance/Drug Use: never Vitals/I&O/Wt Last Vital Signs Temp 97.9 F 05/07/25 06:48 Pulse 89 05/07/25 14:00 Resp 16 05/07/25 10:55 BP 136/85 05/07/25 10:55 Pulse Ox 99 05/07/25 10:55 O2 Del Method Room Air 05/07/25 11:30 05/06/25 05/07/25 05/07/25 22:59 06:59 14:59 Intake Total 0 / 0 Balance 0 / 0 Weight last 48 hrs Weight 145 lb 8.081 oz Weight 143 lb Physical Exam 2 Narrative: General: Alert, oriented, in no acute distress. Vital Signs: Stable. HEENT: Normocephalic, atraumatic. Oropharynx clear. No facial or neck swelling. Neck: Supple, no jugular venous distension, no cervical lymphadenopathy. Cardiovascular: Regular rate and rhythm, no murmurs, rubs, or gallops. Respiratory: Right anterior apical Thora-Vent catheter in place; breath sounds decreased over the right upper chest, otherwise clear to auscultation bilaterally. No accessory muscle use. GI: Abdomen soft, non-tender, non-distended. Ileostomy bag in place, functioning, no signs of infection or irritation around stoma. Bowel sounds present. : Deferred. MSK: No tenderness or deformities. Normal range of motion in extremities. Skin: Warm, dry, no rash or lesions. No peripheral edema. Neurologic: Alert and oriented x3. No focal deficits. Psychiatric: Calm, cooperative, normal mood and affect. Data 05/07/25 07:17 05/07/25 07:17 CT Chest: My impression: A&P Assessment and plan 1. Iatrogenic pneumothorax: 2. History of colorectal cancer: 3. DDD (degenerative disc disease), cervical: 4. Multiple environmental allergies: 5. MARY (generalized anxiety disorder): Plan: A 64-year-old woman with a history of colorectal cancer (in remission) developed acute right-sided chest pain and dyspnea after receiving trigger-point steroid injections. Imaging revealed a moderate right pneumothorax, likely iatrogenic, though a spontaneous pneumothorax remains a less likely consideration given the absence of significant parenchymal disease on CT chest. The pneumothorax is resolving with a chest tube in place and no evidence of an air leak on water seal. Recommendations: * Clamp the chest tube at 4:00 p.m. * Obtain a chest X-ray at 6:00 p.m. * If no air reaccumulation is seen, continue the clamping trial overnight. * If the morning chest X-ray remains stable, proceed with chest tube removal and discharge planning. * Also I would recommend to involve cardiology for further workup for possible underlying coronary disease since patient supposed to get in soon Sasha Hamilton MD, FACP Interventional pulmonary PDMP PDMP Reviewed: Not Reviewed Coding Level of Care Code Acute Code for Chg Fwd Diagnoses Iatrogenic pneumothorax J95.811 History of colorectal cancer Z85.048 DDD (degenerative disc disease), cervical M50.30 Multiple environmental allergies Z91.09 MARY (generalized anxiety disorder) F41.1
[2025-05-07] MEDS: morphine 4 mg/mL SDV 1 mL 2 MG IVP (16:25)
--- NOTE | 2025-05-07 17:01 | PC.NURSE ---
Arnold with Dr Duran then with Dr Hamilton his recommendations in his note, critical nurse order now reflects his recommendations. Thravent/chest tube now clamped , xray to be in 2 hours post clamping.
--- NOTE | 2025-05-07 19:00 | XRR_ITS ---
PROCEDURE INFORMATION: Exam: XR Chest Exam date and time: 05/07/2025 6:57 PM Age: 64 years old Clinical indication: Other: Follow up ptx; Additional info: Follow up ptx, 1900 alg TECHNIQUE: Imaging protocol: Radiologic exam of the chest. Views: 1 view. COMPARISON: 1. CT chest wo con [id number] 05/07/2025 12:43 PM 2. CR XR chest 1V portable [id number] 05/07/2025 9:29 AM 3. CR XR chest 1V portable [id number] 05/07/2025 7:48 AM FINDINGS: Lungs: Mild bibasilar streak atelectasis versus scarring. No consolidation. Pleural spaces: Stable right chest tube without residual pneumothorax. No pleural effusion. Heart/Mediastinum: Unremarkable. No cardiomegaly. Bones/joints: Mild spondylosis and bilateral acromioclavicular joint arthropathy. XR/XR chest 1V portable [id number] IMPRESSION: Stable right chest tube without residual pneumothorax.
[2025-05-07] MEDS: fentaNYL 50 mcg/mL INJ 2mL 25 MCG IVP (23:23)
[2025-05-08] VITALS (17 sets, daily range): BP systolic 127–148; BP diastolic 75–89; PULSE 64–88; RESP 12–24; TEMP 36.2–36.8; O2SAT 85–100
[2025-05-08] MEDS: fentaNYL 50 mcg/mL INJ 2mL 25 MCG IVP (03:48)
[2025-05-08 04:41] LABS: Hematocrit 34.0 % (36-47); Hemoglobin 11.50 g/dL (11.27-16.99); Mean Corpuscular HGB Conc 33.8 g/dL (30-55); Mean Corpuscular Hemoglobin 30.2 pg (27-33); Mean Corpuscular Volume 89.2 fl (85-98); Nucleated Red Blood Cells % 0 %; Platelet Count 250 10^3/cmm (157-399); Red Blood Count 3.81 10^6/uL (3.85-5.65); White Blood Count 8.06 10^3/uL (3.29-11.43)
[2025-05-08 05:03] LABS: Anion Gap 14.8 (5-19); Blood Urea Nitrogen 24 mg/dL (8-23); Calcium 9.4 mg/dL (8.5-10.5); Carbon Dioxide 24 mmol/L (22-29); Chloride 103 mmol/L (98-107); Creatinine Clr Calc Pharmacy 73.1797; Glucose 92 mg/dL (65-115); Osmolality Calculated 290 mOsm/kg (285-295); Potassium 3.8 mmol/L (3.5-5.1); Sodium 138 mmol/L (136-145)
--- NOTE | 2025-05-08 06:00 | XRR_ITS ---
PROCEDURE INFORMATION: Exam: XR Chest Exam date and time: 05/08/2025 5:21 AM Age: 64 years old Clinical indication: F/u RT pneumothorax. Thoravent in place. ; Additional info: Reassess ptx TECHNIQUE: Imaging protocol: Radiologic exam of the chest. Views: 1 view. COMPARISON: CR (CHEST, ) 05/07/2025 6:57 PM FINDINGS: Tubes, catheters and devices: Right thoracostomy catheter. Lungs: Unremarkable. No consolidation. Pleural spaces: A minimal right apical pneumothorax may persist, if so it is extremely tiny. Impressions: Possible minimal residual apical pneumothorax. Heart/Mediastinum: Unremarkable. No cardiomegaly. Bones/joints: Unremarkable. XR/XR chest 1V portable [id number] IMPRESSION: Possible extremely minimal right apical pneumothorax.
--- NOTE | 2025-05-08 13:25 | P.PN_ITS ---
Subjective 2 Subjective: No acute events overnight. Patient denied significant chest pain or shortness of breath. Her chest tube has been clamped since 4 PM yesterday Vitals/I&O/Wt Last Vital Signs Temp 98.6 F 05/07/25 12:00 Pulse 66 05/08/25 12:00 Resp 15 05/08/25 12:00 BP 135/78 05/08/25 11:00 Pulse Ox 98 05/08/25 10:00 O2 Del Method Room Air 05/07/25 18:45 05/07/25 05/08/25 05/08/25 22:59 06:59 14:59 Intake Total 300 / 300 300 / 300 Balance 300 / 300 300 / 300 Weight last 48 hrs Weight 145 lb 8.081 oz Weight 143 lb Physical Exam 2 Const: COMMON NORMALS: no acute distress and patient oriented x3 GENERAL APPEARANCE: cooperative, comfortable, well kempt and well developed HENMT: COMMON NORMALS: normocephalic HEAD & SCALP: normocephalic Neck/C-Spine: COMMON NORMALS: no JVD Chest: COMMONS NORMALS: normal inspection of the chest Resp: COMMON NORMALS: normal respiratory effort and clear to auscultation bilaterally AUSCULTATION: clear to auscultation bilaterally Cardio: COMMON NORMALS: no JVD, regular rate and regular rhythm RATE: r egular rate RHYTHM: regular rhythm GI: COMMON NORMALS: Soft to palpation and non-tender PALPATION: Yes Soft to palpation Extremity: COMMON NORMALS: normal to inspection NARRATIVE EXTREMITY EXAM: No edema. Neuro: COMMON NORMALS: patient oriented x3 OTHER: Grossly intact Psych: APPEARANCE: Yes well kempt Skin: COMMON NORMALS: no rashes or lesions noted GENERAL SKIN EXAM: no rashes or lesions noted Data 05/08/25 03:56 05/08/25 03:56 CXR: My impression: No significant residual pneumothorax A&P Assessment and plan 1. Iatrogenic pneumothorax: 2. MARY (generalized anxiety disorder): 3. Multiple environmental allergies: 4. History of colorectal cancer: 5. DDD (degenerative disc disease), cervical: Plan: The chest tube has been clamped for nearly 20 hours without any signs of air accumulation or recurrence of pneumothorax. The patient has remained asymptomatic throughout. Recommendations: * The chest tube was removed at the bedside without complications. A sterile gauze dressing with Tegaderm was applied. * I discussed the plan with Dr. Dodson: a chest X-ray will be obtained two hours post chest tube removal. If there is no evidence of recurrent pneumothorax, the patient may be discharged home. * I counseled the patient on symptoms of possible pneumothorax recurrence (e.g., sudden chest pain or shortness of breath) and advised her to return to the emergency department if any occur. * As this was an iatrogenic pneumothorax and she remains stable, no routine follow-up is required at this time. However, I provided her with our clinic contact information in case any issues arise and she needs follow-up with the pulmonary team. Sasha Hamilton MD, FACP Interventional Pulmonary PDMP PDMP Reviewed: Not Reviewed Attestations 2 Medical Necessity Statement*: Chest tube managment. Coding Level of Care Code Acute Code for Chg Fwd Diagnoses Iatrogenic pneumothorax J95.811 MARY (generalized anxiety disorder) F41.1 Multiple environmental allergies Z91.09 History of colorectal cancer Z85.048 DDD (degenerative disc disease), cervical M50.30
--- OUTSIDE RECORDS SUMMARY | 2025-05-08 13:54 | XMS_ITS | Patient Health Record ---
Author Organization [facility] Address [address] [address] Care Team Providers Care Career Services Coordinator Name Role Phone Brian Ford Unavailable [phone] Arnoldo JACKSON, Flaco Unavailable Unavailable Allergies Allergen [...] review and pick correct strength-formulat ion from [employer] options. If intended option is not shown, discontinue and re-order from Quick Search* 07/05/2022 Active Ozempic (1 MG/DOSE) 4 MG/3 ML ; Duration: 84 *Please review and pick correct strength-formulat ion from [employer] options. If intended option is not shown, [...] Risk Notes Problem Type 2 diabetes mellitus (83591885) Type 2 diabetes mellitus (E11.9) 1 Active confirmed Problem Supraventricular tachycardia (6325921) SVT (supraventri cular tachycardia) (I47.1) 1 Active confirmed Plan Of Treatment No Information Insurance Providers Payer Name Payer Address Payer Phone Subscriber Number Group Number Insured Name Patient Relationship to Insured Coverage Start Date Coverage End Date MEDICARE [employer] [address] [place] [address] [id number] Kimberly Zaidi Self - patient is the insured [employer] [place] [address] [place] [address] [id number] Kimberly Zaidi Self - patient is the insured Medical (General) History Medical History History ICD Code colorectal cancer rectal cancer osteomyelitis herpes SVT DM Surgical History Surgery Date(Month/Year) colectomy ileostomy jaw dental surgery Debridement reconstructive surgery
--- NOTE | 2025-05-08 14:30 | XRR_ITS ---
PROCEDURE INFORMATION: Exam: XR Chest Exam date and time: 05/08/2025 2:49 PM Age: 64 years old Clinical indication: Followup RT pneumothorax; 2hrs post chest tube removal TECHNIQUE: Imaging protocol: Radiologic exam of the chest. Views: 1 view. COMPARISON: CR (CHEST, ) 05/08/2025 5:21 AM FINDINGS: Tubes, catheters and devices: Right thoracostomy tube. Lungs: Unremarkable. No consolidation. Pleural spaces: The pneumothorax has resolved. Heart/Mediastinum: Unremarkable. No cardiomegaly. Bones/joints: Unremarkable. XR/XR chest 1V portable [id number] IMPRESSION: Resolved pneumothorax.
--- NOTE | 2025-05-08 16:30 | P.DS_ITS ---
Discharge Providers Date of Admission: 05/08/25 10:15 Date of Discharge: May 08, 2025 Attending Provider at Admission: Agustín Duran Attending Provider at Discharge: Jacinto Dodson MD Consults: Dr. Sasha Hamilton MD pulmonology Primary Care Provider: Tricia Rivera DO Diagnoses at Discharge Discharge Diagnosis 1. Iatrogenic pneumothorax: Details from hospital stay: She had a pneumothorax from trigger point injections done in right upper back at the pain clinic. She required a Thora vent placed by Dr. Lindsey placed to Pleur-evac yesterday. There was minimal air leak and this was placed to waterseal overnight. We pulled the chest tube this morning and 2 hours later lung showed no significant recurrence. She is discharged at this time 2. MARY (generalized anxiety disorder): Details from hospital stay: Stable 3. Multiple environmental allergies: Details from hospital stay: Stable 4. History of colorectal cancer: Details from hospital stay: Stable 5. DDD (degenerative disc disease), cervical: Details from hospital stay: Stable Reason for Visit Reason for Visit: pain left side rib area, trouble breathing Brief History: Kimberly Zaidi is a 64-year-old female with a past medical history of coronary artery disease, major depressive disorder, hypothyroidism, pernicious anemia, nephrolithiasis, and stage 3B colorectal cancer (status post colectomy with permanent ileostomy, in remission since 2014) presented with acute right- sided flank and chest pain, along with shortness of breath. These symptoms developed shortly after receiving trigger-point steroid injections to the right shoulder and upper back the previous day. She reported immediate post-injection symptoms, including numbness in her neck and mouth. She went home and self-administered aspirin, Benadryl, and alprazolam, with minimal relief. Overnight and into the following morning, her right-sided chest pain and dyspnea worsened, prompting her to present to the emergency department. A chest X-ray revealed a moderate right-sided pneumothorax. She underwent placement of a small-bore Thora-Vent catheter, resulting in complete evacuation of the pneumothorax and significant improvement in both symptoms and radiographic findings. The patient reported substantial symptomatic relief following the intervention. She has no known history of lung disease or prior pneumothorax and denies any fa charla history of pulmonary conditions. She quit smoking in 2007 after an estimated 5?10 pack-year history of intermittent tobacco use over approximately 20 years. Hospital Course Hospital Course Patient had a Thora vent placed in the emergency department and she was transferred to the ICU under the care of Dr. Duran on the hospitalist team with Dr. Sasha Hamilton MD pulmonary consulting. Chest tube was placed to waterseal last evening and x-ray showed no pneumothorax this morning. Thora vent was removed by Dr. Hamilton this morning and x-ray done 2 hours later shows no significant recurrence. Patient is breathing well and will go home. She has direction to return if she has painful breathing or acute shortness of breath Physical Exam Narrative: CV regular rate and rhythm Lungs clear to auscultation bilaterally General Well-developed well-nourished female in no acute cardiopulmonary distress Discharge Data Studies Completed and Pending Completed Studies During Hospitalization Category Date Time Status CT chest wo con 65435 Routine Cat Scan 05/07/25 11:27 Completed CXRP [XR chest 1V portable [id number]] Routine Exams 05/07/25 19:00 Completed CXRP [XR chest 1V portable [id number]] Routine Exams 05/08/25 14:30 Completed XR chest 1V portable [id number] Routine Exams 05/08/25 06:00 Completed XR chest 1V portable [id number] Stat Exams 05/07/25 06:53 Completed XR chest 1V portable [id number] Stat Exams 05/07/25 09:36 Completed Pending at discharge Category Date Time Status Basic Metabolic Panel AM LABS Lab 05/09/25 04:00 Ordered Basic Metabolic Panel AM LABS Lab 05/10/25 04:00 Ordered Complete Blood Count w/Auto AM LABS Lab 05/09/25 04:00 Ordered Complete Blood Count w/Auto AM LABS Lab 05/10/25 04:00 Ordered Radiology Impressions Chest CT 05/07/25 11:27 IMPRESSION: 1. 1. Resolved right pneumothorax with small bore chest tube in satisfactory position in the upper RIGHT pleural cavity. Small right-sided pleural effusion. 2. Other minor findings as above. Chest X-Ray 05/08/25 14:30 IMPRESSION: Resolved pneumothorax. Laboratory Results WBC 8.06 10^3/uL (3.29-11.43) 05/08/25 03:56 RBC 3.81 10^6/uL (3.85-5.65) L 05/08/25 03:56 Hgb 11.50 g/dL (11.27-16.99) 05/08/25 03:56 Hct 34.0 % (36-47) L 05/08/25 03:56 MCV 89.2 fl (85-98) 05/08/25 03:56 MCH 30.2 pg (27-33) 05/08/25 03:56 MCHC 33.8 g/dL (30-55) 05/08/25 03:56 RDW 12.9 % (12.1-15.1) 05/08/25 03:56 Plt Count 250 10^3/cmm (157-399) 05/08/25 03:56 MPV 10.1 fL (7.4-10.4) 05/08/25 03:56 Neut % (Auto) 70.0 % 05/08/25 03:56 Lymph % (Auto) 20.3 % 05/08/25 03:56 Walton % (Auto) 7.7 % 05/08/25 03:56 Eos % (Auto) 1.7 % 05/08/25 03:56 Baso % (Auto) 0.1 % 05/08/25 03:56 Neut # (Auto) 5.63 10^3/uL (1.8-7.7) 05/08/25 03:56 Lymph # (Auto) 1.6 10^3/uL (0.8-4.8) 05/08/25 03:56 Walton # (Auto) 0.6 10^3/uL (0.2-0.9) 05/08/25 03:56 Eos # (Auto) 0.1 10^3/uL (0.0-0.8) 05/08/25 03:56 Baso # (Auto) 0.0 10^3/uL (0.0-0.1) 05/08/25 03:56 Nucleated RBC % (auto) 0 % 05/08/25 03:56 Nucleated RBCs # 0.0 /100WBC 05/08/25 03:56 Sodium 138 mmol/L (136-145) 05/08/25 03:56 Potassium 3.8 mmol/L (3.5-5.1) 05/08/25 03:56 Chloride 103 mmol/L (98-107) 05/08/25 03:56 Carbon Dioxide 24 mmol/L (22-29) 05/08/25 03:56 Anion Gap 14.8 (5-19) 05/08/25 03:56 BUN 24 mg/dL (8-23) H 05/08/25 03:56 Creatinine 0.8 mg/dL (0.5-0.9) 05/08/25 03:56 GFR Calculation 72.0 mL/min (90-130) L 05/08/25 03:56 Glucose 92 mg/dL (65-115) 05/08/25 03:56 Calculated Osmolality 290 mOsm/kg (285-295) 05/08/25 03:56 Calcium 9.4 mg/dL (8.5-10.5) 05/08/25 03:56 Total Bilirubin 1.0 mg/dL (0.15-1.2) 05/07/25 07:17 AST 24 U/L (0-32) 05/07/25 07:17 ALT 16 U/L (0-33) 05/07/25 07:17 Alkaline Phosphatase 91 U/L (35-105) 05/07/25 07:17 Total Protein 7.3 g/dL (6.6-8.7) 05/07/25 07:17 Albumin 4.5 g/dL (3.5-5.2) 05/07/25 07:17 Globulin 2.8 g/dL (1.3-4.6) 05/07/25 07:17 Imaging CXR: Radiologist's impression: Post Thora vent removal 2 hours later no pneumothorax Vitals Last Vital Signs Temp 97.2 F L 05/08/25 14:27 Pulse 78 05/08/25 14:28 Resp 24 H 05/08/25 14:27 BP 128/77 05/08/25 14:27 Pulse Ox 98 05/08/25 14:27 O2 Del Method Room Air 05/08/25 14:27 Discharge Plan Discharge Patient Disposition: Home Condition: Stable Prescriptions: Continued (DME) CeraPlus Lock'n Roll 1 piece Drainable Ostomy Pouch 38mm See Rx Instructions .Route .MEDSUPPLY Rx Instructions: To be used with Illiostomy. (DME) Brava Skin Barrier Wipe for Ostomy appliance placement 0 .Route .MEDSUPPLY albuterol sulfate [Ventolin HFA] 90 mcg/actuation HFA aerosol inhaler 2 puff inhalation Q6H PRN (Reason: shortness of breath or wheezing) Qty: 8.5 2RF ergocalciferol (vitamin D2) 1,250 mcg (50,000 unit) capsule 1,250 mcg PO .weekly mecobalamin (vitamin B12) 10,000 mcg recon soln 10,000 mcg IM .monthly Mounjaro 15 mg/0.5 mL pen injector 15 mg SUBCUT Q30D neomycin-polymyxin B-dexameth 3.5mg/mL-10,000 unit/mL-0.1 % drops,suspension 1 drp ophthalmic (eye) Q6H Qty: 5 0RF fexofenadine [Claudia Allergy] 60 mg tablet 60 mg PO Q12H 30 Days Qty: 60 1RF alprazolam 0.5 mg tablet 0.5 mg PO BID PRN (Reason: anxiety) Qty: 60 2RF Rx Instructions: Do not fill until 04/12/2025 nitroglycerin 0.4 mg tablet, sublingual 0.4 mg sublingual Q5M PRN (Reason: chest pain) Qty: 20 1RF Rx Instructions: do not exceed 3 doses per episode aspirin [Malcolm Aspirin] 325 mg Tablet 650 mg PO Q6H PRN (Reason: Fever Or Pain) valacyclovir 1 gram tablet 1,000 mg PO BID PRN (Reason: breakout) diphenhydramine HCl [Benadryl Allergy] 25 mg Tablet 25 mg PO TID PRN (Reason: Allergic Reaction) Discharge Order = DC NOW: Discharge Order (Routine); Ordered 05/08/25 Ordered By: Jacinto Dodson Referrals: Tricia Rivera DO [Primary Care Provider, [facility]] - 2 weeks Discharge Diet: Diabetic Discharge Activity: Resume usual activity Patient Instructions: Opioid Safety, Patient Portal & Madan Instructions Activity Restrictions/Additional Instructions: Please call Saturday to schedule a followup appointment with your primary care provider. Discharge Attestations Time Spent in Discharge Care*: greater than 30 min Quality Metrics Clinical Quality Measures [ No reported AMI, CVA or VTE this stay] Coding Level of Care Code 47753 Diagnoses Iatrogenic pneumothorax J95.811 MARY (generalized anxiety disorder) F41.1 Multiple environmental allergies Z91.09 History of colorectal cancer Z85.048 DDD (degenerative disc disease), cervical M50.30
== END 2025-05-08 16:30 | disposition home or self-care (01) ==
LOC: ER 09:46 → ICU 17:51
PROVIDERS: Admitting Provider Internal Medicine; Emergency Provider Family Medicine; PCP Family Medicine; Visit Provider Internal Medicine
DX: J95.811 Postprocedural pneumothorax (principal); F41.1 Generalized anxiety disorder; Z91.09 Other allergy status, other than to drugs and biological substances; Z85.048 Personal history of other malignant neoplasm of rectum, rectosigmoid junction, and anus; M50.30 Other cervical disc degeneration, unspecified cervical region; Z79.82 Long term (current) use of aspirin; Z93.2 Ileostomy status; Z87.891 Personal history of nicotine dependence; I25.10 Atherosclerotic heart disease of native coronary artery without angina pectoris; I25.2 Old myocardial infarction; I47.10 Supraventricular tachycardia, unspecified; E78.5 Hyperlipidemia, unspecified; E03.9 Hypothyroidism, unspecified; F32.9 Major depressive disorder, single episode, unspecified; D51.0 Vitamin B12 deficiency anemia due to intrinsic factor deficiency; N20.0 Calculus of kidney
CPT/HCPCS: 36415; 71045; 71250; 80048; 80053; 85025; 93005; 96376; 99291; G0378; J1885; J2250; J2270; J3010; J9999

== ENCOUNTER 2025-05-27 08:41 | Outpatient (CLI) | payer MEDICARE, BC, SELFPAY ==
--- NOTE | 2025-05-27 | ECG_ITS ---
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 Interpretive Statements Electronically Signed On 05-30-2025 11:56:54 CDT by Flex Fierro M.D. [email or web address]
[2025-05-27 09:09] VITALS: BMI 20.7
--- NOTE | 2025-05-27 09:12 | NMCV_ITS ---
NM yasmin perf SPECT r/s* [id number] Kimberly Zaidi Age: 64 Gender: F : 1960 Exam Date: 05/27/2025 09:48 Ordering Phys: Tricia Rivera DO Technologist: DONNA Lamas Exam Location: [facility] Indications: cp STRESS TEST [facility] IMAGE PROTOCOL Rest/Stress 1 Exercise Day Radiopharmaceutical Dose (mCi) Administration Site Administered by Rest: Tc-99m 10.8 IV Agnieszka Knox, VAMPER Sestamibi Stress:Tc-99m 32.8 IV Agnieszka Munozgle, VAMPER Sestamibi Rest: 27-May-2025 60 Discovery 630 Stress: 27-May-2025 15 Discovery 630 Radiopharmaceutical was injected at 100% maximum heart rate. Images obtained in supine and prone position. SPECT RESULTS Technical Quality: Good Raw Data Analysis: Normal Image Corrections: No attenuation or motion correction applied Summed Stress Score: 0 Summed Rest Score: 0 Summed Difference Score: 0 PERFUSION FINDINGS SPECT images demonstrate homogeneous tracer distribution throughout the myocardium. FUNCTIONAL RESULTS (calculated via Gated SPECT) Stress Image LV EF (%): 71 Stress EDV (mL):65 TID: 0.97 Stress ESV (mL):19 FUNCTIONAL FINDINGS: There is normal left ventricular systolic function. EF 71% IMPRESSIONS Myocardial perfusion imaging is normal. Normal LV size and systolic function, EF 71%. Flex Fierro MD, FACC (Electronically Signed) Final Date: 27 May 2025 12:00 S
[2025-05-27 11:03] VITALS: BP 142/99; PULSE 98
== END 2025-05-27 08:42 | disposition home or self-care (01) ==
LOC: CDL 08:48
PROVIDERS: PCP Family Medicine; Visit Provider Family Medicine
DX: R07.89 Other chest pain (principal)
CPT/HCPCS: 36415; 78452; 93017; A9500

== ENCOUNTER → 2025-06-15 13:38 | Outpatient (BNVA) | payer MEDICARE, BC, SELFPAY | PROVIDERS: PCP Family Medicine; Referring Provider Family Medicine; Visit Provider Internal Medicine | DX: R07.9 Chest pain, unspecified (principal); I47.10 Supraventricular tachycardia, unspecified | CPT/HCPCS: 99204 ==

== ENCOUNTER 2025-07-23 07:37 | Outpatient (CLI) | payer MEDICARE, BC, SELFPAY | END 2025-07-23 07:38 | disposition home or self-care (01) | LOC: RAD 07:39 | PROVIDERS: PCP Family Medicine; Visit Provider Family Medicine | DX: Z12.31 Encounter for screening mammogram for malignant neoplasm of breast (principal) | CPT/HCPCS: 77063; 77067 ==

== ENCOUNTER → 2025-07-26 08:27 | Outpatient (BNVA) | payer MEDICARE, BC, SELFPAY | PROVIDERS: PCP Family Medicine; Visit Provider Thoracic Surgery (Cardiothoracic Vascular Surgery) | DX: I96 Gangrene, not elsewhere classified (principal); L92.8 Other granulomatous disorders of the skin and subcutaneous tissue | CPT/HCPCS: 97597; 99213 ==

== ENCOUNTER → 2025-08-04 14:03 | Outpatient (BNVA) | payer MEDICARE, BC, SELFPAY | PROVIDERS: PCP Family Medicine; Visit Provider Physician Assistant | DX: M25.512 Pain in left shoulder (principal); M25.511 Pain in right shoulder; M75.42 Impingement syndrome of left shoulder; M75.41 Impingement syndrome of right shoulder; M24.9 Joint derangement, unspecified; G89.29 Other chronic pain | CPT/HCPCS: 73030; 99213 ==

== ENCOUNTER → 2025-08-10 07:52 | Outpatient (BNVA) | payer MEDICARE, BC, SELFPAY | PROVIDERS: PCP Family Medicine; Visit Provider Dermatology | DX: F42.4 Excoriation (skin-picking) disorder (principal); L81.4 Other melanin hyperpigmentation; L57.8 Other skin changes due to chronic exposure to nonionizing radiation; D48.5 Neoplasm of uncertain behavior of skin; L57.0 Actinic keratosis | CPT/HCPCS: 11102; 17000; 99203 ==

== ENCOUNTER → 2025-09-08 13:06 | Outpatient (BNVA) | payer MEDICARE, BC, SELFPAY | PROVIDERS: PCP Family Medicine; Visit Provider Student in an Organized Health Care Education/Training Program | DX: M75.42 Impingement syndrome of left shoulder (principal); M75.41 Impingement syndrome of right shoulder; M19.011 Primary osteoarthritis, right shoulder; M19.012 Primary osteoarthritis, left shoulder | CPT/HCPCS: 99213 ==

== ENCOUNTER → 2025-09-10 14:52 | Outpatient (BNVA) | payer MEDICARE, BC, SELFPAY | PROVIDERS: PCP Family Medicine; Visit Provider Family Medicine | DX: Z13.6 Encounter for screening for cardiovascular disorders (principal); E55.9 Vitamin D deficiency, unspecified; E53.8 Deficiency of other specified B group vitamins; R73.03 Prediabetes; R53.83 Other fatigue | CPT/HCPCS: 80053; 82306; 82607; 83036; 84443; 85025 ==

== ENCOUNTER 2025-09-14 11:46 | Outpatient (CLI) | payer MEDICARE, BC, SELFPAY ==
--- NOTE | 2025-09-14 11:15 | USCV_ITS ---
Kimberly Zaidi Age: 64 Gender: F : 1960 Exam Date: 09/14/2025 12:10 Ordering Phys: Miguel Ángel Garcia M.D ([email or web address]) Technologist: [place]am [place] [facility] [place]ication: cp hx mi BP: 120 / 80 HR: 82 Rhythm: Sinus Technical Quality: Adequate MEASUREMENTS (Male / Female) Normal Values 2D ECHO LV Diastolic Diameter PLAX 4.0 cm 4.2 - 5.9 / 3.9 - 5.3 cm IVS Diastolic Thickness 1.1 cm 0.6 - 1.0 / 0.6 - 0.9 cm IVS Systolic Thickness 1.4 cm LVPW Diastolic Thickness 1.3 cm 0.6 - 1.0 / 0.6 - 0.9 cm LVPW Systolic Thickness 1.5 cm LVOT Diameter 2.1 cm LV Ejection Fraction 2D Teich 61.3 % LV Ejection Fraction MOD 4C 55.9 % LV Ejection Fraction MOD 2C 71.5 % LV Ejection Fraction 2C AL 70.7 % LA Diameter 2.9 cm RA Systolic Volume 4C AL 46.4 ml RA Systolic Volume 4C MOD 44.1 ml Aorta at Sinotubular Diameter 2.4 cm IVC Diameter 1.8 cm M-MODE LA Ao Ratio MM 1.0 AV Cusp Separation MM 2.3 cm DOPPLER AV Peak Velocity 114.0 cm/s LVOT Peak Velocity 85.0 cm/s AV Area Cont Eq vti 3.1 cm squared AV Area Cont Eq pk 2.5 cm squared MV Peak Velocity 83.3 cm/s TR Peak Velocity 143.0 cm/s TR Peak Gradient 8.2 mmHg PV Peak Velocity 91.0 cm/s FINDINGS Left Ventricle Normal left ventricular size and systolic function, EF 55-60%. No regional wall motion abnormalities. Right Ventricle Normal in size and function Right Atrium Normal in size Left Atrium Normal in size IA Septum Grossly normal Mitral Valve Mild mitral annular calcification. Trace mitral regurgitation Aortic Valve Structurally normal aortic valve. No significant stenosis or regurgitation. Tricuspid Valve Insufficient TR jet to calculate RVSP Pulmonic Valve Mild pulmonic regurgitation. Pericardium Normal Aorta Normal in size IVC Appears to be normal CONCLUSIONS LV systolic function is normal with EF of 55-60%. Trace mitral regurgitation. Mild pulmonic regurgitation Miguel Ángel Garcia MD (Electronically Signed) Final Date: 18 September 2025 13:18 S
== END 2025-09-14 11:47 | disposition home or self-care (01) ==
LOC: RAD 11:50
PROVIDERS: PCP Family Medicine; Visit Provider Internal Medicine
DX: R07.9 Chest pain, unspecified (principal); R06.02 Shortness of breath; I34.81 Nonrheumatic mitral (valve) annulus calcification; I37.1 Nonrheumatic pulmonary valve insufficiency
CPT/HCPCS: 93306